=== PATIENT | female | born 1985 | race African-American/Black ===

== ENCOUNTER 2021-01-18 09:20 | Emergency (ER) | payer OTHER, SELFPAY ==
[~2021-01-18] VITALS: Ht 165.1 cm; Wt 54.5 kg
[2021-01-18 11:13] LABS: HEMATOCRIT 47.2 % (36.0-47.0); HEMOGLOBIN 15.4 g/dl (12.0-15.5); MEAN CORPUSCULAR HEMOGLOBIN 27.1 pg (27.0-33.0); MEAN CORPUSCULAR HGB CONC 32.6 g/dl (32.0-36.5); PLATELET COUNT, AUTOMATED 179 10^3/uL (150-450); RED BLOOD COUNT 5.69 10^6/uL (4.00-5.40); WHITE BLOOD COUNT 8.1 10^3/uL (4.0-10.0)
[2021-01-18 11:30] LABS: AMPHETAMINES LEVEL URINE NEGATIVE (NEGATIVE); BARBITURATES URINE NEGATIVE (NEGATIVE); BENZODIAZEPINES URINE NEGATIVE (NEGATIVE); CANNABINOIDS URINE NEGATIVE (NEGATIVE); COCAINE METABOLITE URINE NEGATIVE (NEGATIVE); METHADONE URINE NEGATIVE (NEGATIVE); OPIATES URINE NEGATIVE (NEGATIVE); PHENCYCLIDINE URINE NEGATIVE (NEGATIVE)
[2021-01-18 11:46] LABS: RSV AMPLIFICATION NEGATIVE (NEGATIVE)
[2021-01-18 11:50] LABS: ACETAMINOPHEN LEVEL < 2.0 UG/ML (10.0-30.0); ALT/SGPT 30 U/L (12-78); BILIRUBIN,DIRECT < 0.1 MG/DL (0.0-0.2); BILIRUBIN,TOTAL 0.3 MG/DL (0.2-1.0); BLOOD UREA NITROGEN 16 MG/DL (7-18); CALCIUM LEVEL 9.2 MG/DL (8.5-10.1); CARBON DIOXIDE LEVEL 30 MEQ/L (21-32); CHLORIDE LEVEL 104 MEQ/L (98-107); CREATININE FOR GFR 0.66 MG/DL (0.55-1.30); ETHYL ALCOHOL (ETHANOL) < 0.003 % (0.000-0.010); GLOMERULAR FILTRATION RATE > 60.0 (>60); GLUCOSE, FASTING 111 MG/DL (70-100); SALICYLATE LEVEL < 1.7 MG/DL (5.0-30.0); SODIUM LEVEL 142 MEQ/L (136-145); TOTAL PROTEIN 7.9 GM/DL (6.4-8.2)
[2021-01-18 15:22] LABS: HCG, SERUM QUALITATIVE NEGATIVE (NEGATIVE)
[2021-01-18 20:16] VITALS: BP 141/94
== END 2021-01-18 20:20 ==
LOC: M ED 09:20
DX: R45.851 Suicidal ideations (principal)

== ENCOUNTER 2022-09-12 10:43 | Emergency (ER) | payer OTHER ==
[~2022-09-12] VITALS: Ht 152.4 cm; Wt 73.6 kg
[2022-09-12 10:44] VITALS: BP 135/86; TEMP 98.3; O2SAT 100
[2022-09-12 12:09] LABS: HEMATOCRIT 44.9 % (36.0-47.0); HEMOGLOBIN 14.5 g/dl (12.0-15.5); MEAN CORPUSCULAR HEMOGLOBIN 26.8 pg (27.0-33.0); MEAN CORPUSCULAR HGB CONC 32.3 g/dl (32.0-36.5); MEAN CORPUSCULAR VOLUME 82.8 fl (80.0-96.0); PLATELET COUNT, AUTOMATED 181 10^3/uL (150-450); RED BLOOD COUNT 5.42 10^6/uL (4.00-5.40); WHITE BLOOD COUNT 11.2 10^3/uL (4.0-10.0)
[2022-09-12 12:38] LABS: LIPASE 44 U/L (12-53)
[2022-09-12 12:41] LABS: ALBUMIN 4.1 G/DL (3.2-5.2); ALKALINE PHOSPHATASE 50 U/L (46-116); ALT/SGPT 17 U/L (7.0-40); AST/SGOT 8 U/L (<34); BILIRUBIN,DIRECT 0.4 MG/DL (<0.4); BILIRUBIN,TOTAL 1.2 MG/DL (0.3-1.2); BLOOD UREA NITROGEN 13 MG/DL (9-23); CALCIUM LEVEL 9.4 MG/DL (8.5-10.1); CARBON DIOXIDE LEVEL 26 MMOL/L (20-31); CHLORIDE LEVEL 104 MMOL/L (98-107); CREATININE FOR GFR 0.67 MG/DL (0.55-1.30); GLOMERULAR FILTRATION RATE > 60.0 (>60); GLUCOSE, FASTING 94 MG/DL (60-100); HCG, SERUM QUALITATIVE NEGATIVE (NEGATIVE); POTASSIUM SERUM 4.2 MMOL/L (3.5-5.1); SODIUM LEVEL 139 MMOL/L (136-145); TOTAL PROTEIN 7.3 G/DL (5.7-8.2)
[2022-09-12 13:12] LABS: ATYPICAL LYMPH 9 % (0-5); LYMPHOCYTES 26 % (16-44); MONOCYTES 2 % (0-5); NEUTROPHILS 60 % (28-66); PLATELET ESTIMATE NORMAL (NORMAL)
== END 2022-09-12 15:04 | disposition left against medical advice (07) ==
LOC: M ED 10:43
DX: R10.9 Unspecified abdominal pain (principal); Z53.21 Procedure and treatment not carried out due to patient leaving prior to being seen by health care provider

== ENCOUNTER 2023-03-08 03:58 | Emergency (ER) | payer OTHER ==
[~2023-03-08] VITALS: Ht 152.4 cm; Wt 76.2 kg
[2023-03-08 03:58] VITALS: BP 143/80; TEMP 97.7; O2SAT 100
== END 2023-03-08 05:09 | disposition left against medical advice (07) ==
LOC: M ED 03:58
DX: Z53.21 Procedure and treatment not carried out due to patient leaving prior to being seen by health care provider (principal)

== ENCOUNTER → 2023-05-03 | Outpatient (CLI) | payer OTHER | LOC: M RAD 12:36 | PROVIDERS: ATTEND Family Medicine | DX: O09.522 Supervision of elderly multigravida, second trimester (principal); O10.012 Pre-existing essential hypertension complicating pregnancy, second trimester; Z3A.14 14 weeks gestation of pregnancy; O34.211 Maternal care for low transverse scar from previous cesarean delivery; D25.9 Leiomyoma of uterus, unspecified; O34.12 Maternal care for benign tumor of corpus uteri, second trimester ==